=== PATIENT | female | born 1985 | race Caucasian/White ===

== ENCOUNTER 2018-07-23 11:22 | Emergency (ER) | payer BC, OTHER ==
[2018-07-23] MEDS ORDERED: ACETAMINOPHEN 500 MG TAB ONE (13:04)
[2018-07-23] MEDS ORDERED: IBUPROFEN 200 MG TAB PO ONE (13:05)
[2018-07-23] MEDS ORDERED: NA CHLORIDE 0.9% 1,000 ML ONE (13:05)
[2018-07-23 13:08] LABS: Absolute Lymphocytes (CBC) 0.4 K/uL (0.7-4.9); Absolute Monocytes 0.4 K/uL (0.1-1.3); Absolute Neutrophil 5.7 K/uL (1.8-8.0); Basophils % 0.2 % (0-1.3); Eosinophils % 0.7 % (0-4.4); Hematocrit 40.2 % (36.0-45.0); Lymphocytes % 6.1 % (15.3-44.8); MPV 8.9 fL (7.6-11.3); Monocytes % 6.2 % (3.3-12.3)
[2018-07-23 13:09] LABS: Urine Bacteria <20 /HPF (<20); Urine Culture Reflex Order NOT NEEDED; Urine RBC <5 /HPF (NONE SEEN)
[2018-07-23 13:20] LABS: ALT/SGPT 23 U/L (12-78); AST/SGOT 13 U/L (15-37); Albumin 4.1 g/dL (3.4-5.0); Alkaline Phosphatase 39 U/L (45-117); BUN Blood Urea Nitrogen 11 mg/dL (7-18); Bicarbonate 23 mmol/L (21-32); Bilirubin Total 0.8 mg/dL (0.2-1.0); Glucose Level 86 mg/dL (74-106); Potassium 3.4 mmol/L (3.5-5.1); Protein, Total 7.6 g/dL (6.4-8.2); Sodium Level 139 mmol/L (136-145)
[2018-07-23 13:25] LABS: Urine Blood NEGATIVE (NEG); Urine Glucose NEGATIVE (NEG); Urine Protein NEGATIVE (NEG); Urine Specific Gravity <1.005 (1.005-1.030)
--- NOTE | 2018-07-23 13:32 | ER ---
Nurse's Notes [facility] Name: Chela Yanes Age: 33 yrs Sex: Female : 1985 Arrival Date: 07/23/2018 Time: 11:28 Bed 20 Private MD: Diagnosis: Fever, unspecified;Essential (primary) hypertension;Acute upper respiratory infection, unspecified;Hypokalemia Presentation: 07/23 11:30 Presenting complaint: Patient states: "8:30 I started feeling nauseous, and then I aj1 started having chills and I couldn't control them and I was shaking, my back was hurting and my neck was hurting.". Transition of care: patient was not received from another setting of care. Onset of symptoms was July 23, 2018 at 08:30. Risk Assessment: Do you want to hurt yourself or someone else? Patient reports no desire to harm self or others. Initial Sepsis Screen: Does the patient meet any 2 criteria? HR > 90 bpm. No. Patient's initial sepsis screen is negative. Does the patient have a suspected source of infection? No. Patient's initial sepsis screen is negative. Care prior to arrival: None. 11:30 Method Of Arrival: Ambulatory aj1 11:30 Acuity: KELLI 2 aj1 Triage Assessment: 11:32 General: Appears in no apparent distress. uncomfortable, Behavior is calm, cooperative, aj1 appropriate for age. Pain: Complains of pain in back. Neuro: Level of Consciousness is awake, alert, obeys commands. Historical: - Allergies: 11:32 No Known Allergies; aj1 - Home Meds: 11:32 None [Active]; aj1 - PMHx: 11:32 None; aj1 - PSHx: 11:32 None; aj1 - Immunization history:: Flu vaccine is up to date. - Social history:: Smoking status: Patient/guardian denies using tobacco. - Ebola Screening: : Patient denies travel to an Ebola-affected area in the 21 days before illness onset. Screenin:35 Abuse screen: Denies threats or abuse. Denies injuries from another. Nutritional bp screening: No deficits noted. Tuberculosis screening: No symptoms or risk factors identified. Fall Risk None identified. Assessment: 12:40 General: Appears in no apparent distress. uncomfortable, slender, Behavior is calm, bp cooperative, appropriate for age. Pain: Complains of pain in GENERALIZED PAIN. Neuro: Level of Consciousness is awake, alert, obeys commands, Oriented to person, place, time, situation, Appropriate for age. Cardiovascular: No deficits noted. Respiratory: Airway is patent Respiratory effort is even, unlabored, Respiratory pattern is regular, symmetrical. GI: No signs and/or symptoms were reported involving the gastrointestinal system. : No signs and/or symptoms were reported regarding the genitourinary system. EENT: No deficits noted. Derm: No deficits noted. Musculoskeletal: Circulation, motion, and sensation intact. Range of motion: intact in all extremities. 14:15 Reassessment: Patient appears in no apparent distress at this time. Patient and/or rb1 family updated on plan of care and expected duration. Pain level reassessed. Patient is alert, oriented x 3, equal unlabored respirations, skin warm/dry/pink. Vital Signs: 11:32 BP 151 / 66; Pulse 157; Resp 20; Temp 101.5(O); Pulse Ox 97% on R/A; Weight 53.07 kg aj1 (R); Height 5 ft. 1 in. (154.94 cm) (R); Pain 5/10; 12:30 BP 120 / 73; Pulse 122; Resp 17; Pulse Ox 98% ; bp 13:15 BP 101 / 68; Pulse 113; Resp 15; Temp 100.6; Pulse Ox 100% ; bp 14:15 BP 107 / 65; Pulse 74; Resp 16; Temp 99(O); Pulse Ox 100% on R/A; Pain 3/10; rb1 11:32 Body Mass Index 22.11 (53.07 kg, 154.94 cm) aj1 ED Course: 11:28 Patient arrived in ED. mr 11:31 Triage completed. aj1 11:32 Arm band placed on Patient placed in an exam room. aj1 11:35 Patient has correct armband on for positive identification. Placed in gown. Bed in low bp position. Call light in reach. Side rails up X2. 11:37 Fabiano Toure MD is Attending Physician. yolande 11:37 EKG done, by packaging technician. reviewed by Fabiano Toure MD. at1 11:51 Jonathan Hogan, RN is Primary Nurse. bp 12:40 Inserted saline lock: 20 gauge in right forearm, using aseptic technique. Blood bp collected. 13:24 X-ray completed. Patient tolerated procedure well. ml 13:25 Chest Pa And Lat (2 Views) In Process Unspecified. EDMS 14:23 No provider procedures requiring assistance completed. IV discontinued, intact, rb1 bleeding controlled, No redness/swelling at site. Pressure dressing applied. Administered Medications: 12:40 Drug: NS 0.9% 1000 ml Route: IV; Rate: 1 bolus; Site: right forearm; bp 14:15 Follow up: IV Status: Completed infusion rb1 12:40 Drug: Tylenol 650 mg Route: PO; bp 13:13 Follow up: Response: No adverse reaction bp 12:40 Drug: Motrin 600 mg Route: PO; bp 13:13 Follow up: Response: No adverse reaction bp 13:42 Drug: Rocephin - (cefTRIAXone) 1 grams Route: IVPB; Infused Over: 30 mins; Site: right bp antecubital; 13:42 Drug: Potassium Effervescent Tablet 25 mEq Route: PO; bp Outcome: 13:31 Discharge ordered by MD. lanier 14:23 Discharged to home ambulatory, with significant other. rb1 14:23 Condition: stable 14:23 Discharge instructions given to patient, Instructed on discharge instructions, follow up and referral plans. medication usage, Demonstrated understanding of instructions, follow-up care, medications, Prescriptions given X 1. 14:23 Patient left the ED. rb1 Signatures: Dispatcher [employer] EDMS Esther Singh RN RN aj1 Fabiano Toure MD MD cha Rivera, Wendy mr Melvin, Chrissy Adrian, online education manager EKG Tat1 Verena Cheung, RN RN rb1 Jonathan Hogan, LESLEE RN bp Corrections: (The following items were deleted from the chart) 14:28 14:26 Patient left the ED. rb1 rb1
--- NOTE | 2018-07-23 13:32 | EDPHYS ---
Physician Documentation [facility] Name: Chela Yanes Age: 33 yrs Sex: Female : 1985 Arrival Date: 07/23/2018 Time: 11:28 Bed 20 Private MD: ED Physician Fabiano Toure HPI: 07/23 12:12 This 33 yrs old Female presents to ER via Ambulatory with complaints of High yolande Blood Pressure. 12:12 The patient has elevated blood pressure and discovered this work. Onset: The yolande symptoms/episode began/occurred just prior to arrival. Modifying factors: The symptoms are aggravated by activity, The symptoms are alleviated by remaining still. Associated signs and symptoms: Pertinent positives: dizziness, lightheadedness, nausea. Severity of symptoms: At its worst the blood pressure was mild, in the emergency department the blood pressure is unchanged. The patient has not experienced similar symptoms in the past. Historical: - Allergies: 11:32 No Known Allergies; aj1 - Home Meds: 11:32 None [Active]; aj1 - PMHx: 11:32 None; aj1 - PSHx: 11:32 None; aj1 - Immunization history:: Flu vaccine is up to date. - Social history:: Smoking status: Patient/guardian denies using tobacco. - Ebola Screening: : Patient denies travel to an Ebola-affected area in the 21 days before illness onset. ROS: 12:13 Eyes: Negative for injury, pain, redness, and discharge, ENT: Negative for injury, yolande pain, and discharge, Neck: Negative for injury, pain, and swelling, Respiratory: Negative for shortness of breath, cough, wheezing, and pleuritic chest pain, Abdomen/GI: Negative for abdominal pain, nausea, vomiting, diarrhea, and constipation, Back: Negative for injury and pain, : Negative for injury, bleeding, discharge, and swelling, MS/Extremity: Negative for injury and deformity, Skin: Negative for injury, rash, and discoloration, Psych: Negative for depression, anxiety, suicide ideation, homicidal ideation, and hallucinations, Allergy/Immunology: Negative for hives, rash, and allergies, Endocrine: Negative for neck swelling, polydipsia, polyuria, polyphagia, and marked weight changes, Hematologic/Lymphatic: Negative for swollen nodes, abnormal bleeding, and unusual bruising. 12:13 Constitutional: Positive for fatigue, fever, malaise. 12:13 Cardiovascular: Positive for palpitations. 12:13 Respiratory: Positive for cough. Exam: 12:13 Head/Face: Normocephalic, atraumatic. Eyes: Pupils equal round and reactive to light, yolande extra-ocular motions intact. Lids and lashes normal. Conjunctiva and sclera are non-icteric and not injected. Cornea within normal limits. Periorbital areas with no swelling, redness, or edema. ENT: Nares patent. No nasal discharge, no septal abnormalities noted. Tympanic membranes are normal and external auditory canals are clear. Oropharynx with no redness, swelling, or masses, exudates, or evidence of obstruction, uvula midline. Mucous membranes moist. Neck: Trachea midline, no thyromegaly or masses palpated, and no cervical lymphadenopathy. Supple, full range of motion without nuchal rigidity, or vertebral point tenderness. No Meningismus. Chest/axilla: Normal chest wall appearance and motion. Nontender with no deformity. No lesions are appreciated. Respiratory: Lungs have equal breath sounds bilaterally, clear to auscultation and percussion. No rales, rhonchi or wheezes noted. No increased work of breathing, no retractions or nasal flaring. Abdomen/GI: Soft, non-tender, with normal bowel sounds. No distension or tympany. No guarding or rebound. No evidence of tenderness throughout. Back: No spinal tenderness. No costovertebral tenderness. Full range of motion. Skin: Warm, dry with normal turgor. Normal color with no rashes, no lesions, and no evidence of cellulitis. MS/ Extremity: Pulses equal, no cyanosis. Neurovascular intact. Full, normal range of motion. Neuro: Awake and alert, GCS 15, oriented to person, place, time, and situation. Cranial nerves II-XII grossly intact. Motor strength 5/5 in all extremities. Sensory grossly intact. Cerebellar exam normal. Normal gait. Psych: Awake, alert, with orientation to person, place and time. Behavior, mood, and affect are within normal limits. 12:13 Constitutional: The patient appears febrile. 12:13 Cardiovascular: Rate: normal, Rhythm: regular, Pulses: Pulses are 4+ in bilateral radial, brachial, femoral, popliteal, posterior tibial and and dorsalis pedis arteries.. Heart sounds: normal, Edema: is not appreciated, JVD: is not appreciated. Vital Signs: 11:32 BP 151 / 66; Pulse 157; Resp 20; Temp 101.5(O); Pulse Ox 97% on R/A; Weight 53.07 kg aj1 (R); Height 5 ft. 1 in. (154.94 cm) (R); Pain 5/10; 12:30 BP 120 / 73; Pulse 122; Resp 17; Pulse Ox 98% ; bp 13:15 BP 101 / 68; Pulse 113; Resp 15; Temp 100.6; Pulse Ox 100% ; bp 14:15 BP 107 / 65; Pulse 74; Resp 16; Temp 99(O); Pulse Ox 100% on R/A; Pain 3/10; rb1 11:32 Body Mass Index 22.11 (53.07 kg, 154.94 cm) aj1 MDM: 11:37 Patient medically screened. [facility] 12:15 Data reviewed: vital signs, lab test result(s), EKG, radiologic studies, CT scan, plain yolande films. 07/23 11:37 Order name: Flu; Complete Time: 13:28 [facility] 07/23 11:37 Order name: Urine Culture formerly [facility] 07/23 11:37 Order name: Urine Microscopic Only; Complete Time: 13:24 [facility] 07/23 12:12 Order name: CBC with Diff; Complete Time: 14:26 [facility] 07/23 12:12 Order name: Comprehensive Metabolic Panel; Complete Time: 13:24 [facility] 07/23 12:12 Order name: Blood Culture Adult (2) [facility] 07/23 12:12 Order name: Strep; Complete Time: 13:24 [facility] 07/23 12:14 Order name: Chest Pa And Lat (2 Views); Complete Time: 14:26 [facility] 07/23 12:55 Order name: Urine Dipstick--Ancillary (enter results); Complete Time: 13:28 07/23 13:11 Order name: CBC Smear Scan; Complete Time: 14:26 [facility] 07/23 13:19 Order name: Throat Culture [facility] 07/23 11:37 Order name: Urine Test (obtain specimen); Complete Time: 13:02 [facility] 07/23 11:37 Order name: Urine Dipstick-Ancillary (obtain specimen); Complete Time: 13:02 [facility] 07/23 14:22 Order name: EKG Electrocardiogram EDMS Administered Medications: 12:40 Drug: NS 0.9% 1000 ml Route: IV; Rate: 1 bolus; Site: right forearm; bp 14:15 Follow up: IV Status: Completed infusion rb1 12:40 Drug: Tylenol 650 mg Route: PO; bp 13:13 Follow up: Response: No adverse reaction bp 12:40 Drug: Motrin 600 mg Route: PO; bp 13:13 Follow up: Response: No adverse reaction bp 13:42 Drug: Rocephin - (cefTRIAXone) 1 grams Route: IVPB; Infused Over: 30 mins; Site: right bp antecubital; 13:42 Drug: Potassium Effervescent Tablet 25 mEq Route: PO; bp Disposition: 07/23/18 13:31 Discharged to Home. Impression: Fever, unspecified, Essential (primary) hypertension, Acute upper respiratory infection, unspecified, Hypokalemia. - Condition is Stable. - Discharge Instructions: Potassium Content of Foods, Fever, Adult, Hypertension, Upper Respiratory Infection, Adult, Hypertension, Nuwu-he-Awum, Cough, Adult, Managing Your Hypertension. - Prescriptions for Augmentin 875- 125 mg Oral Tablet - take 1 tablet by ORAL route every 12 hours for 7 days; 14 tablet. - Medication Reconciliation Form, Thank You Letter, Antibiotic Education, Prescription Opioid Use form. - Follow up: Private Physician; When: 2 - 3 days; Reason: Recheck today's complaints, Continuance of care, Re-evaluation by your physician. - Problem is new. - Symptoms have improved. Signatures: Dispatcher [employer] [facility] Esther Singh RN RN aj1 Fabiano Toure MD MD cha Therrien, Shelly, MANAGER PEOPLE-C MANAGER PEOPLE-[employer] Verena Cheung, RN RN rb1 Jonathan Hogan, RN RN bp Corrections: (The following items were deleted from the chart) 13:09 12:13 Chest Pa And Lat (2 Views)+RAD.[email or web address].[email or web address] ordered. [facility] 14:26 13:31 07/23/2018 13:31 Discharged to Home. Impression: Fever, unspecified; Essential rb1 (primary) hypertension; Acute upper respiratory infection, unspecified; Hypokalemia. Condition is Stable. Forms are Medication Reconciliation Form, Thank You Letter, Antibiotic Education, Prescription Opioid Use. Follow up: Private Physician; When: 2 - 3 days; Reason: Recheck today's complaints, Continuance of care, Re-evaluation by your physician. Problem is new. Symptoms have improved. yolande
--- NOTE | 2018-07-23 13:34 | RAD REPORT ---
EXAM DESCRIPTION: Camryn Qiu (2 Views)07/23/2018 1:28 pm CLINICAL HISTORY: Cough COMPARISON: None FINDINGS: The lungs appear clear of acute infiltrate. The heart is normal size IMPRESSION: No acute abnormalities displayed
[2018-07-23 13:48] LABS: Blood Morphology Comment NOTED (NOT SEEN); Platelet Estimate ADEQ; Stomatocytes 1+; Urine White Blood Cell Casts OK
[2018-07-23] MEDS ORDERED: CEFTRIAXONE/SWI 1gm 1 GM/10 ML SYR ONE (13:48)
[2018-07-23] MEDS ORDERED: POTASSIUM 25 MEQ EFFERV TAB ONE (13:48)
--- NOTE | 2018-07-24 07:53 | EKG ---
Test Date: 2018-07-23 Test Time: 11:37:44 Net Maker: RICHARD MEASUREMENT RESULTS: Intervals: Rate: 144 GA: 152 QRSD: 84 QT: 264 QTc: 408 Caroline: P: 81 GA: 152 QRS: 116 T: 28 INTERPRETIVE STATEMENTS: Sinus tachycardia Left posterior fascicular block T wave abnormality, consider inferolateral ischemia Abnormal ECG No previous ECG available for comparison Electronically Signed On 07-24-18 07:52:22 CDT by Stephon Engle
== END 2018-07-23 14:26 | disposition home or self-care (01) ==
LOC: ER 11:22
DX: I10 Essential (primary) hypertension (principal); J06.9 Acute upper respiratory infection, unspecified; E87.6 Hypokalemia
CPT/HCPCS: 36415; 71046; 80053; 81003; 81015; 85025; 87040; 87070; 87081; 87086; 87088; 87804; 93005; 96361; 96374; 99284; J0696; J7030